=== PATIENT | female | born 1990 | race African-American/Black ===

== ENCOUNTER 2018-09-05 11:18 | Emergency (ER) | payer MEDICAID ==
[~2018-09-05] VITALS: Ht 165.1 cm; Wt 83.9 kg
--- NOTE | 2018-09-05 11:25 | NUR ---
ED Nurse Note: Patient walked into ED c/o swollen lymph node on the left ingroin area, patient reports she noticed it this morning. patient reports cold/coughing about 1 week ago. patient denies any n/v, fever or chills. patient is alert awake x4 ambulatory, breathing unlabored and even, skin is warm to touch.
[2018-09-05] MEDS ORDERED: NKM (11:27)
--- NOTE | 2018-09-05 11:37 | Emergency Room Report ---
History of Present Illness General Chief Complaint: General Complaint Source: Patient Present Illness HPI Patient presents with complaints of tender lymph node in the left groin area she reports feeling the discomfort this morning and noticing the palpable Region Denies any recent fevers or chills she has had a cold however denies any vomiting or diarrhea denies any vaginal discharge Denies any foul smell denies any dysuria frequency Denies any recent trauma Allergies: Coded Allergies: IODINE (Verified Allergy, Severe, 09/05/18) Patient History Past Medical History: see triage record Pertinent Family History: none Last Menstrual Period: 08/25/2018 Reviewed Nursing Documentation: PMH: Agreed; PSxH: Agreed Nursing Documentation-PMH Past Medical History: No History, Except For Review of Systems All Other Systems: negative except mentioned in HPI Physical Exam Vital Signs Date Time Temp Pulse Resp B/P (MAP) Pulse Ox O2 Delivery O2 Flow Rate FiO2 09/05/18 11:23 98.6 99 16 112/72 (85) 95 Room Air Sp02 EP Interpretation: reviewed, normal General Appearance: well appearing, no apparent distress Head: normocephalic, atraumatic Eyes: bilateral eye PERRL, bilateral eye EOMI ENT: normal pharynx Neck: full range of motion, supple Respiratory: lungs clear, no respiratory distress, no retraction Cardiovascular #1: regular rate, rhythm Gastrointestinal: non tender, soft Genitourinary: no CVA tenderness Musculoskeletal: normal inspection Neurologic: alert, oriented x3, responsive Skin: no rash Lymphatic: other - Isolated palpable approximately 3 x 3 cm left-sided inguinal lymph node, mildly tender to touch no obvious erythema Medical Decision Making Diagnostic Impression: Primary Impression: Lymphadenopathy Additional Impression: Lymphadenitis ER Course Multiple differentials and consideration including but not limited to infectious pathology, such as folliculitis, STD Other blood-borne infections Patient is hemodynamically stable afebrile denies any recent sexual activity Denies any nonprotected activity Urine sample was negative patient's abdomen remains soft Given the small size of the lymph node given the location and appearance of it patient is placed on antibiotics and will have close outpatient follow-up Labs Test 09/05/18 11:40 Urine Color Pale yellow Urine Appearance Clear Urine pH 7 (4.5-8.0) Urine Specific [place] 1.005 (1.005-1.035) Urine Protein Negative (NEGATIVE) Urine Glucose (UA) Negative (NEGATIVE) Urine Ketones Negative (NEGATIVE) Urine Blood Negative (NEGATIVE) Urine Nitrite Negative (NEGATIVE) Urine Bilirubin Negative (NEGATIVE) Urine Urobilinogen 1 MG/DL (0.0-1.0) Urine Leukocyte Esterase 1+ (NEGATIVE) Urine RBC 0 /HPF (0 - 2) Urine WBC 0-2 /HPF (0 - 2) Urine Squamous Epithelial Cells Occasional /LPF Urine Bacteria None /HPF (NONE) Urine HCG, Qualitative Negative (NEGATIVE) Last Vital Signs Date Time Temp Pulse Resp B/P (MAP) Pulse Ox O2 Delivery O2 Flow Rate FiO2 09/05/18 11:23 98.6 99 16 112/72 (85) 95 Room Air Status: improved Disposition: HOME, SELF-CARE Condition: Improved Scripts Ibuprofen* (MOTRIN*) 600 Mg Tablet 600 MG ORAL THREE TIMES A DAY, #20 TAB 0 Refills Prov: Ching Huynh DO 09/05/18 Cephalexin* (KEFLEX*) 500 Mg Capsule 500 MG ORAL EVERY 6 HOURS for 7 Days, CAP Prov: Ching Huynh DO 09/05/18 Additional Instructions: Patient is provided with the discharge instructions notified to follow up with primary doctor in the next 2-3 days otherwise return to the er with any worsening symptoms. Please note that this report is being documented using [employer] technology. This can lead to erroneous entry secondary to incorrect interpretation by the dictating instrument. Ching Huynh DO Sep 05, 2018 11:37
[2018-09-05 11:38] VITALS: BP 118/71
[2018-09-05 12:40] LABS: APPEARANCE,URINE CLEAR; BILIRUBIN, URINE NEGATIVE (NEGATIVE); COLOR,URINE PALE YELLOW; GLUCOSE, URINE (UA) NEGATIVE (NEGATIVE); KETONES,URINE NEGATIVE (NEGATIVE); LEUKOCYTE ESTERASE ,URINE 1+ (NEGATIVE); NITRITE,URINE NEGATIVE (NEGATIVE); PH,URINE 7 (4.5-8.0); PROTEIN,URINE NEGATIVE (NEGATIVE); UROBILINOGEN,URINE 1 MG/DL (0.0-1.0)
[2018-09-05] MEDS ORDERED: CEPHALEXIN500 MG ORAL (12:59)
[2018-09-05] MEDS ORDERED: IBUPROFEN600 MG ORAL (12:59)
[2018-09-05 13:03] VITALS: BP 118/71
--- NOTE | 2018-09-05 13:03 | NUR ---
ER DISCHARGE NOTE: Patient is cleared to be discharged per EDUARDO TROTTER , pt is aox4, on room air, with stable vital signs. pt was given dc and prescription instructions, pt was able to verbalize understanding, pt id band removed without complications. pt is able to ambulate with steady gait. pt took all belongings.
== END 2018-09-05 13:03 | disposition home or self-care (01) ==
LOC: EMR 11:46
DX: R59.1 Generalized enlarged lymph nodes (principal); I88.9 Nonspecific lymphadenitis, unspecified; Z91.041 Radiographic dye allergy status
CPT/HCPCS: 81003; 81025; 99283

== ENCOUNTER 2019-01-25 01:34 | Emergency (ER) | payer MEDICAID, OTHER ==
[~2019-01-25] VITALS: Ht 165.1 cm; Wt 95.3 kg
[~2019-01-25 01:34] MED LIST: CEPHALEXIN500 MG ORAL; IBUPROFEN600 MG ORAL; NKM
[2019-01-25 01:51] VITALS: BP 117/73
[2019-01-25] MEDS ORDERED: Levofloxacin 500mg tab ORAL ONE (02:00)
[2019-01-25] MEDS ORDERED: Albuterol ud Inhalation HHN ONE (02:00)
--- NOTE | 2019-01-25 02:01 | Emergency Room Report ---
History of Present Illness General Chief Complaint: Upper Respiratory Illness Source: Patient Present Illness [facility] This is a 29-year-old female with no past motor history. She is a smoker. She presents with chief complaint of coughing. She says she has a sinus problem for the last week. In the last 24 hours went to her chest. She is been coughing a lot. She called to the point that she has incontinence of her urine. Also vomiting. Denies any fever she has chills. No abdominal pain. Vomiting only with coughing. Coughing is productive of greenish sputum. She is a smoker. Lying flat and inspiration made it worse. Rest makes it better. Allergies: Coded Allergies: IODINE (Verified Allergy, Severe, 09/05/18) Patient History Past Medical History: see triage record, old chart reviewed Past Surgical History: none Pertinent Family History: none Social History: Reports: smoking Last Menstrual Period: 01/02/19 Now: No : 2 Para: 1 Immunizations: other Reviewed Nursing Documentation: PMH: Agreed; PSxH: Agreed Nursing Documentation-PMH Past Medical History: No History, Except For Review of Systems Constitutional: Reports: chills Eye: Denies: eye pain, blurred vision ENT: Denies: ear pain, nose congestion, throat swelling Respiratory: Reports: cough, shortness of breath Cardiovascular: Denies: chest pain, palpitations Gastrointestinal: Denies: abdominal pain, diarrhea, nausea, vomiting Musculoskeletal: Denies: back pain, joint pain Skin: Denies: rash Neurological: Denies: headache, numbness Endocrine: Denies: increased thirst, increased urine Hematologic/Lymphatic: Denies: easy bruising All Other Systems: negative except mentioned in HPI Physical Exam Vital Signs Date Time Temp Pulse Resp B/P (MAP) Pulse Ox O2 Delivery O2 Flow Rate FiO2 01/25/19 01:47 97.9 112 18 117/73 (88) 95 Room Air Vitals with tachycardia Sp02 EP Interpretation: reviewed, normal General Appearance: well appearing, no apparent distress, alert Head: normocephalic, atraumatic Eyes: bilateral eye PERRL, bilateral eye EOMI ENT: hearing grossly normal, normal pharynx Neck: full range of motion, supple, no meningismus Respiratory: chest non-tender, decreased breath sounds, rhonchi, wheezing - Slight expiratory Cardiovascular #1: regular rate, rhythm, no murmur Gastrointestinal: normal bowel sounds, non tender, no mass, no organomegaly, no bruit, non-distended Musculoskeletal: back normal, normal range of motion, gait/station normal Psychiatric: mood/affect normal Medical Decision Making Diagnostic Impression: Primary Impression: Atypical pneumonia ER Course Patient presents with symptoms consistent with atypical pneumonia. She felt better after breathing treatment here. Antibiotics given here. No evidence of ACS, PE, dissection to name a few. Will discharge home. Last Vital Signs Date Time Temp Pulse Resp B/P (MAP) Pulse Ox O2 Delivery O2 Flow Rate FiO2 01/25/19 01:51 112 18 Room Air 01/25/19 01:51 97.9 117/73 95 Status: improved Disposition: HOME, SELF-CARE Condition: Improved Scripts Levofloxacin* (LEVAQUIN*) 500 Mg Tablet 500 MG ORAL DAILY, #7 TAB Prov: Basim Cooper MD 01/25/19 Albuterol Sulfate* (ALBUTEROL SULFATE MDI*) 8.5 Gm Hfa.aer.ad 2 PUFF INH Q4H PRN for cough/wheezing, #1 EA 0 Refills Prov: Basim Cooper MD 01/25/19 Patient Instructions: Upper Respiratory Infection, Adult Additional Instructions: Stop smoking. Follow-up with your doctor in 7 days. Return if worse. Basim Cooper MD Jan 25, 2019 02:01
[2019-01-25] MEDS ORDERED: LEVAQUIN500 MG ORAL (02:39)
[2019-01-25] MEDS ORDERED: ALBUTEROL SULF8.5 GM INH (02:39)
[2019-01-25 03:05] VITALS: BP 110/70
[2019-01-25 05:55] VITALS: BP 121/75
== END 2019-01-25 05:55 | disposition home or self-care (01) ==
LOC: EMR 02:00
DX: J18.9 Pneumonia, unspecified organism (principal); F17.200 Nicotine dependence, unspecified, uncomplicated; R11.10 Vomiting, unspecified
CPT/HCPCS: 94640; 94664; Z7502; 99282

== ENCOUNTER 2019-02-07 22:34 | Emergency (ER) | payer OTHER ==
[~2019-02-07] VITALS: Ht 165.1 cm; Wt 90.7 kg
[~2019-02-07 22:34] MED LIST changes: -BACTRIM DS TAB1 EAC1 ORAL
[2019-02-07 22:41] VITALS: BP 125/69
--- NOTE | 2019-02-07 22:41 | NUR ---
ED Nurse Note: Patient walked in to ED c/o abcess on left labia and swelling x1 month. No active bleeding noted. Denies any itching nor difficulty urinating. Afebrile. No SOB. VSS.
[2019-02-07] MEDS ORDERED: Bactrim-DS 1 tab ORAL ONE (22:45)
[2019-02-07] MEDS ORDERED: HYDROcodone/Acetamin 5/325 tab ORAL ONE (22:45)
--- NOTE | 2019-02-07 22:45 | NUR ---
ED Nurse Note: ERMD at bedside.
--- NOTE | 2019-02-07 22:46 | Emergency Room Report ---
History of Present Illness General Chief Complaint: Skin Rash/Abscess Source: Patient Present Illness HPI Is a 29-year-old female with no past medical history. She presents with a lump and a painful mass to the left vagina area. Is been on and off for about a month. It got very swollen and then it drained. In the last 24 hours got bigger. Tender to movement. Tender to palpation. No fever chills but no nausea no vomiting. Pain is 9 out of 10. Never had this problem before. Allergies: Coded Allergies: IODINE (Verified Allergy, Severe, 09/05/18) Patient History Past Medical History: see triage record, old chart reviewed Past Surgical History: none Pertinent Family History: none Social History: Denies: smoking Last Menstrual Period: 01/26/19 Now: No Immunizations: other Reviewed Nursing Documentation: PMH: Agreed; PSxH: Agreed Nursing Documentation-PMH Past Medical History: No History, Except For Review of Systems Eye: Denies: eye pain, blurred vision ENT: Denies: ear pain, nose congestion, throat swelling Respiratory: Denies: cough, shortness of breath Cardiovascular: Denies: chest pain, palpitations Gastrointestinal: Denies: abdominal pain, diarrhea, nausea, vomiting Musculoskeletal: Denies: back pain, joint pain Skin: Denies: rash Neurological: Denies: headache, numbness Endocrine: Denies: increased thirst, increased urine Hematologic/Lymphatic: Denies: easy bruising All Other Systems: negative except mentioned in HPI Physical Exam Vital Signs Date Time Temp Pulse Resp B/P (MAP) Pulse Ox O2 Delivery O2 Flow Rate FiO2 02/07/19 22:37 97.9 98 14 125/69 (87) 97 Vitals normal Sp02 EP Interpretation: reviewed, normal General Appearance: well appearing, no apparent distress, alert Head: normocephalic, atraumatic Eyes: bilateral eye PERRL, bilateral eye EOMI ENT: hearing grossly normal, normal pharynx Neck: full range of motion, supple, no meningismus Respiratory: chest non-tender, lungs clear, normal breath sounds Cardiovascular #1: regular rate, rhythm, no murmur Gastrointestinal: normal bowel sounds, non tender, no mass, no organomegaly, no bruit, non-distended Genitourinary: other - Exam done with female nurse in room. She has a left Bartholin cysts. Tender to palpation. This is small pinpoint necrotic center. Musculoskeletal: back normal, normal range of motion, gait/station normal Psychiatric: mood/affect normal Procedures Incision and Drainage Incision and Drainage : Consent: Verbal Site: Vaginal wall Blade Size: 11 Anesthesia: 1% Lidocaine Patient Tolerated: Well Complications: None Progress Area cleaned with chlorhexidine. Local anesthetic 1% lidocaine without epinephrine. I made a 1 cm incision. Moderate amount of pus expressed. Patient tolerated seizure without any problem. Medical Decision Making Diagnostic Impression: Primary Impression: Bartholin's gland abscess ER Course Patient with a Bartholin gland abscess. No necrotizing fasciitis. Will discharge home. Last Vital Signs Date Time Temp Pulse Resp B/P (MAP) Pulse Ox O2 Delivery O2 Flow Rate FiO2 02/07/19 22:37 97.9 98 14 125/69 (87) 97 Status: improved Disposition: HOME, SELF-CARE Condition: Stable Scripts Ibuprofen* (MOTRIN*) 600 Mg Tablet 600 MG ORAL THREE TIMES A DAY, #30 TAB 0 Refills Prov: Basim Cooper MD 02/07/19 Trimethoprim/Sulfamethoxazole 160/800* (BACTRIM DS TABLET*) 1 Each Tablet 1 TAB ORAL Q12H, #14 TAB 0 Refills Prov: Basim Cooper MD 02/07/19 Additional Instructions: Follow-up with your doctor in 7 days. You may need a referral to see a investigations chief. Return if symptoms worsen. Basim Cooper MD Feb 07, 2019 22:46
--- NOTE | 2019-02-07 23:12 | NUR ---
ED Nurse Note: I&D done by ERMD at bedside.
[2019-02-07] MEDS ORDERED: IBUPROFEN600 MG ORAL (23:22)
[2019-02-07] MEDS ORDERED: BACTRIM DS TAB1 EAC1 ORAL (23:22)
--- NOTE | 2019-02-07 23:27 | NUR ---
ED Nurse Note: Pt cleared by ERMD for discharge. DC instructions/prescription was given and explained to pt and verbalized understanding of teachings. All medical deviecs such as ID band removed. Pt is AAO x4, ambulatory and left with all personal belongings.
== END 2019-02-07 23:27 | disposition home or self-care (01) ==
LOC: EMR 22:51
DX: N75.1 Abscess of Bartholin's gland (principal); Z88.8 Allergy status to other drugs, medicaments and biological substances
CPT/HCPCS: 10060; Z7502; 99282

== ENCOUNTER → 2019-02-07 | Emergency (ER) | payer OTHER ==
[~2019-02-07] MED LIST changes: +ALBUTEROL SULF8.5 GM INH; +BACTRIM DS TAB1 EAC1 ORAL; +LEVAQUIN500 MG ORAL
--- NOTE | 2019-02-07 19:50 | NUR ---
called for triage not in waiting room
--- NOTE | 2019-02-07 20:01 | NUR ---
called for triage; not in waiting room
--- NOTE | 2019-02-07 20:12 | NUR ---
called for triage, not in waiting room.
--- NOTE | 2019-02-08 04:30 | Emergency Room Report ---
History of Present Illness General Chief Complaint: To Be Triaged Source: Medical Record Present Illness HPI The patient arrived at the emergency department 1941. She was called by the triage nurses 1949. She complained about vaginal bleeding. She would not present in the waiting room at that time. Allergies: Coded Allergies: IODINE (Verified Allergy, Severe, 09/05/18) Patient History Past Medical History: see triage record Medical Decision Making Diagnostic Impression: Primary Impression: LWBS ER Course Patient left prior to triage. Disposition: LEFT W/OUT BEING SEEN Condition: Unknown Referrals: NOT CHOSEN IPA/,REFERRING (PCP) Heath Jacobo MD Feb 08, 2019 04:30
== END | disposition left against medical advice (07) ==
LOC: EMR 21:22
DX: Z53.21 Procedure and treatment not carried out due to patient leaving prior to being seen by health care provider (principal); N93.9 Abnormal uterine and vaginal bleeding, unspecified; Z88.8 Allergy status to other drugs, medicaments and biological substances